=== PATIENT | female | born 1990 | race Caucasian/White ===

== ENCOUNTER 2024-08-22 10:17 | Emergency (ER) | payer MEDICAID ==
[~2024-08-22] VITALS: Ht 162.6 cm; Wt 81.0 kg
[2024-08-22 10:20] VITALS: O2SAT 99
[2024-08-22 11:40] LABS: CHLORIDE 104 mEq/L (98-107); POTASSIUM 3.3 mEq/L (3.5-5.1); SODIUM 139 mEq/L (136-145)
[2024-08-22 11:41] LABS: CALCIUM 9.3 mg/dL (8.7-10.4); CARBON DIOXIDE 26 mEq/L (21-32)
[2024-08-22 11:46] LABS: CREATININE 0.9 mg/dL (0.6-1.0); GLUCOSE 91 mg/dL (70-105); HCG SCREEN NEGATIVE
[2024-08-22 12:15] LABS: BASOPHILS % 0.7 % (0.0-2.0); EOSINOPHILS % 0.9 % (0.0-5.0); HEMATOCRIT. 38.7 % (36.0-48.0); HEMOGLOBIN. 13.2 g/dL (12.0-16.0); LYMPHOCYTES % 8.2 % (20.0-50.0); MEAN CORPUSCULAR HEMOGLOBIN 29.3 pg (28.0-32.0); MEAN CORPUSCULAR HGB CONC 34.2 g/dL (31.0-37.0); MEAN CORPUSCULAR VOLUME 85.6 fL (81.0-99.0); MEAN PLATELET VOLUME 7.1 fl (7.4-10.4); NEUTROPHILS % 77.2 % (40.0-76.0); PLATELET 300 x1000/uL (130-400); RED BLOOD CELL COUNT 4.52 mill/uL (4.2-5.4); RED CELL DISTRIBUTION WIDTH 12.7 % (11.6-14.6); WHITE BLOOD COUNT 4.7 x1000/uL (4.5-11.0)
[2024-08-22 12:50] LABS: ETHANOL BLOOD < 10 mg/dL (<10); UREA NITROGEN BLOOD < 5 mg/dL (9-23)
[2024-08-22] MEDS: POTASSIUM CHLORIDE 20MEQ/PACKET PO ONE (13:25)
[2024-08-22 13:51] LABS: CLARITY URINE CLEAR (CLEAR); COLOR URINE YELLOW (YELLOW); GLUCOSE URINE NEGATIVE (NEGATIVE); KETONES URINE 2+ (NEGATIVE); LEUKOCYTE ESTERASE URINE 1+ (NEGATIVE); NITRITE URINE NEGATIVE (NEGATIVE); OCCULT BLOOD URINE 3+ (NEGATIVE); PH URINE 5.5 (4.5-8.0); PROTEIN URINE NEGATIVE (NEGATIVE); SPECIFIC GRAVITY URINE 1.016 (1.005-1.030)
[2024-08-22 14:00] VITALS: BP 125/82; PULSE 80; RESP 16; TEMP 36.94740; O2SAT 99
[2024-08-22] MEDS: ACETAMINOPHEN 325MG TABLET PO ONE (14:11)
[2024-08-22 14:15] LABS: *AMPHETAMINES SCREEN URINE NEGATIVE (NEGATIVE); *BARBITURATES SCREEN URINE NEGATIVE (NEGATIVE); *BENZODIAZEPINES SCREEN URINE NEGATIVE (NEGATIVE); *COCAINE SCREEN URINE NEGATIVE (NEGATIVE); CANNABINOID URINE SCREEN NEGATIVE (NEGATIVE); ECSTASY MDMA SCREEN URINE NEGATIVE (NEGATIVE); METHADONE URINE SCREEN NEGATIVE (NEGATIVE); OPIATES URINE SCREEN NEGATIVE (NEGATIVE); PHENCYCLIDINE URINE SCREEN NEGATIVE (NEGATIVE)
[2024-08-22 15:00] LABS: SQUAMOUS EPITHELIAL CELL URINE 2+ /lpf (RARE/1+)
[2024-08-22 15:03] LABS: BACTERIA URINE 3+; RBC URINE 0-2 /hpf (0-2)
== END 2024-08-22 14:40 | disposition home or self-care (01) ==
LOC: ER 10:17
DX: E87.6 Hypokalemia (principal); F31.9 Bipolar disorder, unspecified; R45.851 Suicidal ideations; Z20.822 Contact with and (suspected) exposure to COVID-19
CPT/HCPCS: 36415; 80048; 80305; 80320; 81003; 84703; 85025; 87426; 99283; G0480